=== PATIENT | female | born 1990 | race Caucasian/White ===

== ENCOUNTER 2020-05-21 21:06 | Emergency (ER) | payer SELFPAY ==
[~2020-05-21] VITALS: Ht 157.5 cm; Wt 54.4 kg
[2020-05-21 21:15] VITALS: BP 118/76; Ht 157.5 cm; Wt 54.4 kg
== END 2020-05-21 22:55 | disposition left against medical advice (07) ==
LOC: ED 21:06
DX: Z53.21 Procedure and treatment not carried out due to patient leaving prior to being seen by health care provider (principal)